=== PATIENT | male | born 1990 | race Caucasian/White ===

== ENCOUNTER 2023-05-30 21:49 | Emergency (ER) | payer BC, OTHER ==
[~2023-05-30] VITALS: Ht 175.3 cm; Wt 142.0 kg
[2023-05-30 21:55] VITALS: BP 122/54; PULSE 96; RESP 16; O2SAT 100
[2023-05-31] MEDS ORDERED: KETOROLAC TROMETH 60MG/2ML VIAL IM ONE (02:15)
[2023-05-31] MEDS ORDERED: cefTRIAXone SOD 1,000 MG VL IM ONE (02:15)
[2023-05-31] MEDS ORDERED: CEPH500C PO (02:17)
[2023-05-31] MEDS ORDERED: ACE3T PO (02:17)
[2023-05-31] MEDS: ONDANSETRON ODT 4 MG TAB PO ONE (02:48)
== END 2023-05-31 02:51 | disposition home or self-care (01) ==
LOC: EDBD 21:49 → ER 21:49
DX: S51.012A Laceration without foreign body of left elbow, initial encounter (principal); S81.811A Laceration without foreign body, right lower leg, initial encounter; S16.1XXA Strain of muscle, fascia and tendon at neck level, initial encounter; S46.811A Strain of other muscles, fascia and tendons at shoulder and upper arm level, right arm, initial encounter; S80.02XA Contusion of left knee, initial encounter; S80.811A Abrasion, right lower leg, initial encounter; S80.812A Abrasion, left lower leg, initial encounter; F41.9 Anxiety disorder, unspecified; J45.909 Unspecified asthma, uncomplicated; F32.9 Major depressive disorder, single episode, unspecified; Z79.899 Other long term (current) drug therapy; V89.2XXA Person injured in unspecified motor-vehicle accident, traffic, initial encounter; Y93.I9 Activity, other involving external motion; Y92.411 Interstate highway as the place of occurrence of the external cause; Y99.8 Other external cause status
CPT/HCPCS: 12002; 70450; 72125; 73030; 73080; 73562; 73590; 99284; J0696; J1885; Q0162